=== PATIENT | male | born 1980 | race Caucasian/White ===

== ENCOUNTER → 2016-08-03 | Outpatient (CLI) | payer BC ==
[2016-08-03 08:18] LABS: CHLORIDE,CL 106 mmol/L (98-110); SODIUM,NA 142 mmol/L (136-146)
== END | disposition home or self-care (01) ==
LOC: MW.LAB 07:31
PROVIDERS: ATTEND Physician Assistant
DX: E10.9 Type 1 diabetes mellitus without complications (principal)
CPT/HCPCS: 36415; 80053; 80061; 82306; 83036; 84443

== ENCOUNTER 2017-03-17 20:26 | Emergency (ER) | payer BC ==
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
[2017-03-17] MEDS ORDERED: Diphtheria,Pertussis(Acell),Tetanus Vaccine 0.5 ML Syringe IM ONE (20:44)
[2017-03-17 21:09] LABS: CHLORIDE,CL 100 mmol/L (98-110); SODIUM,NA 137 mmol/L (136-146)
[2017-03-17] MEDS ORDERED: Sodium Chloride 0.9% 1,000 ML IV ONE (21:17)
[2017-03-17] MEDS ORDERED: Iopamidol 755 MG/ML 500 ML Multipack Bottle IVPUSH STA (21:54)
[2017-03-17] MEDS ORDERED: Acetaminophen 500 MG Tab PO ONE (22:59)
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
== END 2017-03-17 23:07 | disposition left against medical advice (07) ==
LOC: MW.ED 20:26
DX: S52.511A Displaced fracture of right radial styloid process, initial encounter for closed fracture (principal); S00.83XA Contusion of other part of head, initial encounter; S00.31XA Abrasion of nose, initial encounter; M25.562 Pain in left knee; M25.561 Pain in right knee; E11.9 Type 2 diabetes mellitus without complications; Z79.4 Long term (current) use of insulin; Z88.0 Allergy status to penicillin; V86.56XA Driver of dirt bike or motor/cross bike injured in nontraffic accident, initial encounter
CPT/HCPCS: 70450; 70486; 71260; 72125; 73100; 73560; 74177; 80053; 80305; 81001; 85025; 85610; 86850; 86900; 86901; 96360; 99285; A9270; G0480; J7040; Q9967; 93005; 99284; A4566